=== PATIENT | male | born 1945 | race Asian ===

== ENCOUNTER 2022-01-17 04:36 | Day surgery (SDC) | payer OTHER ==
[2022-01-15 14:14] VITALS: BMI 25.7
[2022-01-17 10:24] VITALS: TEMP 98
[2022-01-17 11:30] VITALS: BP 124/52; PULSE 54; RESP 12
== END 2022-01-17 11:25 | disposition home or self-care (01) ==
LOC: JASU-ENDO 04:36
PROVIDERS: ATTEND Internal Medicine Gastroenterology
PROC: 0DBL8ZX Excision of Transverse Colon, Via Natural or Artificial Opening Endoscopic, Diagnostic (ICD-10-PCS; 2022-01-17)
PROC: 0DBN8ZX Excision of Sigmoid Colon, Via Natural or Artificial Opening Endoscopic, Diagnostic (ICD-10-PCS; principal; 2022-01-17 12:00)
DX: Z12.11 Encounter for screening for malignant neoplasm of colon (principal); D12.3 Benign neoplasm of transverse colon; K57.30 Diverticulosis of large intestine without perforation or abscess without bleeding; K64.8 Other hemorrhoids; I10 Essential (primary) hypertension
CPT/HCPCS: 82962; 88305-TC